=== PATIENT | female | born 1965 | race Caucasian/White ===

== ENCOUNTER 2016-11-04 17:15 | Emergency (ER) | payer OTHER ==
[2016-11-04] MEDS ORDERED: SULFAMETHOXAZOLE/TRIMETHOPRIM 800MG/160MG D.S. TABLET PO ONE (17:22)
--- NOTE | 2016-11-04 17:24 | PDOC ---
Rapid Medical Evaluation Time Seen by Provider: 11/04/16 17:20 Medical Evaluation: Allergies Allergy/AdvReac Type Severity Reaction Status Date / Time No Known Allergies Allergy Verified 11/04/16 17:20 11/04/16 17:23 I have performed a brief in-person evaluation of this patient. The patient presents with a chief complaint of: foreign body R index finger, cellulitis now with abscess s/p rupture pus/blood last night. Pain, no motor/ sensory deficit Pertinent physical exam findings: abscess over dorsal aspect R index finger proximal phalanx mild surrounding erythema joints intact nvi I have ordered the following: xray bactrim to FT for I+D The patient will proceed to the ED for further evaluation.
[2016-11-04 17:25] VITALS: BP 157/104; PULSE 74; TEMP 97.6; BMI 30.6
[2016-11-04] MEDS ORDERED: SULFAMETHOXAZOLE/TRIMETHOPRIM 800MG/160MG D.S. TABLET ONE (17:49)
--- NOTE | 2016-11-04 18:09 | PDOC ---
History of Present Illness - General Chief Complaint: Abscess Boil Stated Complaint: WOUND INFECTION Time Seen by Provider: 11/04/16 17:20 History Source: Patient - History of Present Illness Timing/Duration: reports: other Location: reports: hands Past History - Past Medical History Allergies/Adverse Reactions: Allergies Allergy/AdvReac Type Severity Reaction Status Date / Time No Known Allergies Allergy Verified 11/04/16 17:20 Home Medications: Ambulatory Orders Enalapril Maleate [Vasotec -] 5 mg PO DAILY #14 tablet 01/10/16 Nitrofurantoin Monohyd/M-Cryst [Macrobid -] 100 mg PO BID #14 capsule 01/10/16 Clindamycin [Cleocin -] 300 mg PO Q6HPO #28 capsule 11/04/16 Fluconazole 150 mg PO ONCE #1 tablet 11/04/16 Anemia: No Asthma: No Cancer: No Cardiac Disorders: No CVA: No COPD: No CHF: No DVT: No Dementia: No Diabetes: No Dialysis: No GI Disorders: No Other medical history: DENIES. - Psycho/Social/Smoking Cessation Hx Suicidal Ideation: No Smoking History: Never smoked Hx Alcohol Use: No Drug/Substance Use Hx: No Substance Use Type: None Review of Systems - Review of Systems Constitutional: No: Chills, Fever Integumentary: Yes: Erythema *Physical Exam - Vital Signs Last Vital Signs Temp Pulse Resp BP Pulse Ox 97.6 F 74 19 157/104 100 11/04/16 17:21 11/04/16 17:21 11/04/16 17:21 11/04/16 17:21 11/04/16 17:21 - Physical Exam General Appearance: Yes: Appropriately Dressed. No: Apparent Distress HEENT: positive: Normal Voice Neck: positive: Supple Respiratory/Chest: negative: Respiratory Distress Extremity: positive: Other (~1cm area of induration w/ surrounding erythema over dorsum of proximal phalanx of R 2nd digit) Integumentary: positive: Dry, Warm Neurologic: positive: Fully Oriented, Alert, Normal Mood/Affect Procedures - Incision and Drainage I&D Site: Right: Other (R index finger abscess/cellulitis) Anesthesia: 1% Lidocaine Volume(ml): 6 Blade Size: 11 Attempts: 1 (w/ scant pus, no need for packing giving superficial small wound) Complications: none Dressing: Yes (bacitracin w/ xeroform, 2x2 and soft form) ED Treatment Course - Medications Given in the ED: ED Medications Discontinued Medications Generic Name Dose Route Start Last Admin Trade Name Darius PRN Reason Stop Dose Admin Trimethoprim/Sulfamethoxazole 1 each 11/04/16 17:22 11/04/16 17:52 Bactrim Ds - PO 11/04/16 17:23 1 each ONCE ONE Administration Medical Decision Making - Medical Decision Making 11/04/16 18:03 50-year-old female, denies any past medical history, here with left index pain, swelling, redness and discharge. Patient states around 5 days ago accidentally bumped finger against the wall and states her and her boyfriend removed a splinter with alcohol and tweezers. States wound has since worsened and was able to express pus last night. No fever or chills. See exam Abscess/cellulitis of finger No e/o of tenosynovitis at this time No fb on XR Tetanus UTD -I&D -abx -wound check in 48 hrs 11/04/16 18:35 Pt s/p I&D w/ scant pus. Local wound care and dressing at bedside. Will give 1 dose IV abx in ED prior to discharging on clinda as will cover group A strep and ca-mrsa. (pt pen allergic). Pt to return for wound check in 2 days 11/04/16 18:37 11/04/16 18:39 11/04/16 19:12 *DC/Admit/Observation/Transfer Diagnosis at time of Disposition: Cellulitis and abscess of finger, unspecified - Discharge Dispostion Condition at time of disposition: Improved - Prescriptions Prescriptions: Clindamycin [Cleocin -] 300 mg PO Q6HPO #28 capsule Fluconazole 150 mg PO ONCE #1 tablet - Patient Instructions Printed Discharge Instructions: DI for Incision and Drainage of a Skin Abscess Additional Instructions: Take antibiotics as prescribed and if symptoms worsen, present to ED immediately. Otherwise, follow-up in ED in 48 hours for wound check
[2016-11-04] MEDS ORDERED: CLINDAMYCIN 600MG PREMIX IVPB 50 ML IVPB ONE (18:34)
[2016-11-04] MEDS ORDERED: CLINDAMYCIN PHOSPHATE 600 MG/4 ML VIAL ONE (18:42)
== END 2016-11-04 19:05 | disposition home or self-care (01) ==
LOC: JERFT 17:15
PROC: 0H9FXZZ Drainage of Right Hand Skin, External Approach (ICD-10-PCS; principal; 2016-11-04)
DX: L02.511 Cutaneous abscess of right hand (principal)
CPT/HCPCS: 73140-TC-RT; 99281-25

== ENCOUNTER 2016-11-06 17:22 | Emergency (ER) | payer OTHER ==
--- NOTE | 2016-11-06 17:34 | PDOC ---
Rapid Medical Evaluation Time Seen by Provider: 11/06/16 17:31 Medical Evaluation: Allergies Allergy/AdvReac Type Severity Reaction Status Date / Time No Known Allergies Allergy Verified 11/04/16 17:20 11/06/16 17:31 I have performed a brief in-person evaluation of the patient. The patient presents with a chief complaint of: follow up of abscess right 2nd digit Pertinent physical exam findings: wrapped right 2nd digit I have ordered the following: none The patient will proceed to [facility] for further evaluation
[2016-11-06 17:38] VITALS: TEMP 97.4; BMI 33.6
--- NOTE | 2016-11-06 19:26 | PDOC ---
History of Present Illness - General Chief Complaint: Revisit,Wound Recheck Stated Complaint: REVISIT/WOUND CHECK Time Seen by Provider: 11/06/16 17:31 History Source: Patient Exam Limitations: No Limitations - History of Present Illness Timing/Duration: unsure Past History - Travel Traveled outside of the country in the last 30 days: No Close contact w/someone who was outside of country & ill: No - Past Medical History Allergies/Adverse Reactions: Allergies Allergy/AdvReac Type Severity Reaction Status Date / Time amoxicillin trihydrate Allergy Swelling Verified 11/06/16 17:33 [From Augmentin] azithromycin Allergy Swelling Verified 11/06/16 17:33 potassium clavulanate Allergy Swelling Verified 11/06/16 17:33 [From Augmentin] Home Medications: Ambulatory Orders Clindamycin [Cleocin -] 300 mg PO Q6HPO #28 capsule 11/04/16 Anemia: No Asthma: No Cancer: No Cardiac Disorders: No CVA: No COPD: No CHF: No DVT: No Dementia: No Diabetes: No Dialysis: No GI Disorders: No - Psycho/Social/Smoking Cessation Hx Anxiety: No Suicidal Ideation: No Smoking History: Never smoked Have you smoked in the past 12 months: No Information on smoking cessation initiated: No Hx Alcohol Use: No Drug/Substance Use Hx: No Substance Use Type: None Review of Systems - Review of Systems Able to Perform ROS?: Yes Is the patient limited Slovak proficient: No *Physical Exam - Vital Signs Last Vital Signs Temp Pulse Resp BP Pulse Ox 97.4 F L 64 18 196/110 100 11/06/16 17:33 11/06/16 19:01 11/06/16 19:01 11/06/16 19:01 11/06/16 19:01 *DC/Admit/Observation/Transfer Diagnosis at time of Disposition: Visit for wound check Hypertension Qualifiers: Hypertension type: unspecified secondary hypertension Qualified Code(s): I15.9 - Secondary hypertension, unspecified; I15 - Secondary hypertension - Discharge Dispostion Disposition: HOME Condition at time of disposition: Improved - Patient Instructions Printed Discharge Instructions: High Blood Pressure Additional Instructions: MUST follow up with your physician or the physician listed on your discharge Your blood pressure is better on discharge but you MUST follow up. You do NOT want a catscan of your head but state that you will return if the symptoms recur. You are made well aware that high blood pressure and headaches can cause cranial (brain ) bleed and organ damages. Return to the ER for headaches, dizziness, lightheadedness, pain. Progress Note - Progress Note Progress Note: 34-year-old female presents to the emergency department for wound check to her right second digit. Patient states approximately 10 days ago, she hit her hand against a wooden door frame and caused a splinter to puncture her finger. Patient says she thought she removed entire splinter until 5 days ago. She started exhibiting pain which prompted her to look at her wound. She managed to remove an approximate .05 cm remaining splinter from her finger. Patient denies any fever, extremity numbness or tingling sensation. Patient was seen in the emergency department 2 days ago for an I&D and was informed to return to the emergency department for wound check. Upon discharge, patient had her blood pressure taken and was 191/110. Patient says she has a 1/10 dull nonradiating intermittent, right temporal headache which has subsided upon our attempted discharge earlier. Patient says it is not the worst headache of her life. She denies any dizziness, lightheadedness, visual disturbance, blurriness, neck pains, back pains, chest pain, shortness of breath. Patient says she feels fine.
[2016-11-06] MEDS ORDERED: hydrALAZINE HCL 20 MG/ML VIAL ONE (19:31)
--- NOTE | 2016-11-06 19:43 | PDOC ---
*Physical Exam - Vital Signs Last Vital Signs Temp Pulse Resp BP Pulse Ox 97.4 F L 64 18 196/110 100 11/06/16 17:33 11/06/16 19:01 11/06/16 19:01 11/06/16 19:01 11/06/16 19:01 Medical Decision Making - Medical Decision Making 11/06/16 19:43 agree with care from LEEANN Pickard *DC/Admit/Observation/Transfer Diagnosis at time of Disposition: Visit for wound check, Hypertension - Discharge Dispostion Disposition: HOME Condition at time of disposition: Improved - Patient Instructions Printed Discharge Instructions: High Blood Pressure Additional Instructions: MUST follow up with your physician or the physician listed on your discharge Your blood pressure is better on discharge but you MUST follow up. You do NOT want a catscan of your head but state that you will return if the symptoms recur. You are made well aware that high blood pressure and headaches can cause cranial (brain ) bleed and organ damages. Return to the ER for headaches, dizziness, lightheadedness, pain.
[2016-11-06] MEDS ORDERED: ACETAMINOPHEN 325 MG TABLET (FP) PO ONE (20:44)
[2016-11-06] MEDS ORDERED: hydrALAZINE HCL 20 MG/ML VIAL IVPUSH ONE (20:50)
[2016-11-06] MEDS ORDERED: ACETAMINOPHEN 325 MG TABLET (FP) ONE ×2 (20:52→20:54)
[2016-11-06 21:39] VITALS: BP 152/85; PULSE 83
== END 2016-11-06 22:00 | disposition home or self-care (01) ==
LOC: JERFT 17:22 → JER 17:22
PROC: 3E033GC Introduction of Other Therapeutic Substance into Peripheral Vein, Percutaneous Approach (ICD-10-PCS; principal; 2016-11-06)
DX: Z48.01 Encounter for change or removal of surgical wound dressing (principal); I10 Essential (primary) hypertension
CPT/HCPCS: 99283-25

== ENCOUNTER 2017-03-19 12:46 | Emergency (ER) | payer OTHER ==
[2017-03-19 12:50] VITALS: TEMP 98.4; BMI 30.9
--- NOTE | 2017-03-19 13:10 | PDOC ---
History of Present Illness - General History Source: Patient Exam Limitations: No Limitations <Eula Levine - Last Filed: 03/19/17 16:11> <Doe Fernandes - Last Filed: 03/20/17 19:26> - General Chief Complaint: Chest Pain Stated Complaint: CHEST PAIN Time Seen by Provider: 03/19/17 13:06 - History of Present Illness Initial Comments: 03/19/17 16:11 The patient is a 51 year old female, with a significant past medical history of hypertension, who presents to the emergency department for evaluation of elevated blood pressure. Patient reports she was measuring her blood pressure this morning when she began to feel a sharp shooting pain down her right arm but resolved when the cuff deflated. She denies any associated paresthesias or weakness. Patient reports experiencing some chest pain, which she describes as cool/burning iin nature at approx 10am. She reports associated headache and nausea, but denies any dizziness, vomiting, diarrhea, or constipation. She denies any strenuous activity. Patient reports she is occasionally short of breath when walking up a large hill, but dneis any chest pain, diaphoresis or palpitations. Patient states she recently visited her VISUAL SPECIALIST for an annual SNAILER exam, but states Dr. Nguyễn was concerned with her elevated pressure and suggested she present to the ED. Patient reports she has been monitoring her blood pressure and is not on any medications as when she goes to her PMDs office it is normal. Patient reports she had a stress test done last year, which was normal. Allergies: Amoxicillin trihydrate, Azithromycin, Potassium clavulanate Past Surgical History: None reported Social History: Non smoker. No ETOH or drug use. PCP: Dr. Borrero VISUAL SPECIALIST: Dr. Nguyễn (Eula Levine) Past History <Eula Levine - Last Filed: 03/19/17 16:11> - Past Medical History Anemia: No Asthma: No Cancer: No Cardiac Disorders: No CVA: No COPD: No CHF: No DVT: No Dementia: No Diabetes: No Dialysis: No GI Disorders: No Other medical history: DENIES. - Psycho/Social/Smoking Cessation Hx Anxiety: No Suicidal Ideation: No Smoking History: Never smoked Have you smoked in the past 12 months: No Hx Alcohol Use: Yes Drug/Substance Use Hx: No Substance Use Type: None <Doe Fernandes - Last Filed: 03/20/17 19:26> - Past Medical History Allergies/Adverse Reactions: Allergies Allergy/AdvReac Type Severity Reaction Status Date / Time amoxicillin trihydrate Allergy Swelling Verified 03/19/17 13:52 [From Augmentin] azithromycin Allergy Swelling Verified 03/19/17 13:52 potassium clavulanate Allergy Swelling Verified 03/19/17 13:52 [From Augmentin] Home Medications: Ambulatory Orders Clonidine HCl [Catapres] 0.1 mg PO TID #30 tablet 03/19/17 Cardiac Specific PMH - Complaint Specific PMHX GERD: No <Doe Fernandes - Last Filed: 03/20/17 19:26> Review of Systems - Review of Systems Able to Perform ROS?: Yes <Eula Levine - Last Filed: 03/19/17 16:11> <Doe Fernandes - Last Filed: 03/20/17 19:26> - Review of Systems Comments:: 03/19/17 16:11 Constitutional: Pt denies Fever, Chills, weakness HEENT: Denies sore throat, vision changes Respiratory: Denies cough, hemoptysis Cardiac: Pt reports +chest pain. Denies palpitations, light headedness, leg swelling Abd/GI: Reports +nausea. Denies abd pain, vomiting, blood per rectum, melena, diarrhea : Denies dysuria, frequency, discharge Musculoskelatal: Denies back pain, joint swelling Skin: Denies bruising, erythema, rash Neurological: Pt reports +mild headache, Denies focal weakness, tingling, ataxia , weakness Hematologic: Denies anemia, easy bruising, easy bleeding (Haley Levineomilsy) *Physical Exam <Eula Levine - Last Filed: 03/19/17 16:11> <Doe Fernandes - Last Filed: 03/20/17 19:26> - Vital Signs Last Vital Signs Temp Pulse Resp BP Pulse Ox 98.4 F 70 17 189/109 100 03/19/17 12:47 03/19/17 19:31 03/19/17 19:31 03/19/17 19:31 03/19/17 19:31 - Physical Exam Comments: 03/19/17 16:11 GENERAL: The patient is awake, alert, and fully oriented, Nontoxic - in no acute distress. HEAD: Normocephalic, atraumatic. EYES: extraocular movements intact, sclera anicteric, conjunctiva clear. ENT: Normal voice, Moist mucous membranes. NECK: Normal range of motion, supple without lymphadenopathy, JVD, or masses. LUNGS: Breath sounds equal, clear to auscultation bilaterally. No wheezes, no crackles, no rales. HEART: Regular rate and rhythm, normal S1 and S2 without murmur, rub or gallop. ABDOMEN: Soft, nontender, normoactive bowel sounds. No guarding, no rebound. No masses. EXTREMITIES: Normal range of motion, no edema. No clubbing or cyanosis. No cords , erythema, or tenderness. NEUROLOGICAL: No facial asymmetry, Normal speech, normal gait. PSYCH: Normal mood, normal affect. SKIN: Warm, Dry, normal turgor, no rashes or lesions noted. (Eula Levine) ED Treatment Course - LABORATORY CBC & Chemistry Diagram: 03/19/17 13:55 03/19/17 13:55 <Eula Levine - Last Filed: 03/19/17 16:11> - LABORATORY CBC & Chemistry Diagram: 03/19/17 13:55 03/19/17 13:55 <Doe Fernandes - Last Filed: 03/20/17 19:26> - ADDITIONAL ORDERS Additional order review: 03/19/17 13:55 RBC 5.13 MCV 85.8 MCHC 32.6 RDW 14.2 MPV 8.9 Neutrophils % 65.0 Lymphocytes % 27.7 Monocytes % 5.1 Eosinophils % 1.2 Basophils % 1.0 - RADIOLOGY Radiology Studies Ordered: Category Date Time Status CHEST X-RAY PORTABLE* [RAD] Stat Radiology 03/19/17 13:25 Completed Radiograph Interpretation: 03/19/17 15:05 EXAM: CXR INTERPRETED BY: Dr. Fan REVIEWED BY: Dr. Altamirano IMPRESSION: No evidence of active pulmonary disease. (Eula Levine) - Medications Given in the ED: ED Medications Discontinued Medications Generic Name Dose Route Start Last Admin Trade Name Freq PRN Reason Stop Dose Admin Aspirin 162 mg 03/19/17 13:25 03/19/17 13:46 Asa - PO 03/19/17 13:26 162 mg ONCE ONE Administration Clonidine 0.2 mg 03/19/17 19:21 03/19/17 19:31 Catapres - PO 03/19/17 19:22 0.2 mg ONCE ONE Administration Medical Decision Making <Joselyn Levinekrista - Last Filed: 03/19/17 16:11> <Doe Fernandes - Last Filed: 03/20/17 19:26> - Medical Decision Making 03/19/17 13:39 51y F hx of borderline htn presents with chest pain, headache and concern about her bP. The pts tates that the past few times she was in the ER and in the software tester, she was noted to have elevated BP, at her PMDs office, her BP has been normal so she was not started on anything. Pt states this morning when she checked her BP, she had a sharp pain as the cuff was inflating in her R arm, it resolved after she turn the cuff off. The pt endorsed a feeling of chest burning /cool setion in her chest shortly after that resolved after a minute ther was no associated sob, dipahoresis, no sypmtoms on exertion, no associated diaphoresis, n/v. her exam is normal. her vitals noted for mild hypertension consider acs, however sypmtoms are highly atypical, will obtain trop x 2, ekg, cxr cbc, cmp will give asa will erassess and monitor A portion of this note was documented by scribe services under my direction. I have reviewed the details of the note, within reason, and agree with the documentation with the following case summary and management plan written by me 03/19/17 16:29 trop negative x 1 labs unremarkble cxr negative will obtain 2nd trop at 5pm if neg will dc to fu with dr. coppola for further evalution and monitoring of bp and futher risk stratificatoin of her cp case signed ou tto dr. altamirano to fu with 2nd trop, reassess and disposition the pt (Doe Fernandes) *DC/Admit/Observation/Transfer <Haley Levinebarb - Last Filed: 03/19/17 16:11> <Doe Fernandes - Last Filed: 03/20/17 19:26> Diagnosis at time of Disposition: Atypical chest pain, Labile essential hypertension - Discharge Dispostion Disposition: HOME Condition at time of disposition: Improved - Prescriptions Prescriptions: Clonidine HCl [Catapres] 0.1 mg PO TID #30 tablet - Referrals Referrals: Yann Coppola MD, MD [Primary Care Provider] - - Patient Instructions Printed Discharge Instructions: High Blood Pressure, DI for Atypical Chest Pain Additional Instructions: Yudith- I am sorry this took so long today. Your second troponin was negative. Make certain you follow up with your doctor as soon as you can. Take your blood pressure the same time everyday and share the results with your doctor when you follow up. Return to us if worse or any problems. Best- Dr. Sacha Altamirano - Attestations Scribe Attestion: 03/19/17 16:11 Documentation prepared by Eula Levine, acting as medical records receptionist for Doe Fernandes MD. (Eula Levine)
[2017-03-19] MEDS ORDERED: ASPIRIN 81 MG CHEWABLE TABLETS PO ONE (13:25)
[2017-03-19] MEDS ORDERED: ASPIRIN 81 MG CHEWABLE TABLETS ONE (13:44)
[2017-03-19 14:14] LABS: EOSINOPHIL 1.2 % (0-4.5); MCH 27.9 pg (25.7-33.7); MCHC 32.6 g/dl (32.0-36.0); MEAN CELL VOLUME 85.8 fl (80-96); MEAN PLT VOLUME 8.9 fl (7.5-11.1); PLATELET COUNT 254 K/MM3 (134-434); RDW 14.2 % (11.6-15.6); WHITE BLOOD COUNT 9.1 K/mm3 (4.0-10.0)
[2017-03-19 14:41] LABS: ALBUMIN 3.8 g/dl (3.4-5.0); ANION GAP 7 (8-16); BILIRUBIN,TOTAL 0.3 mg/dL (0.2-1.0); CALCIUM 8.8 mg/dL (8.5-10.1); CO2 28 mmol/L (21-32); CREATININE 0.8 mg/dL (0.55-1.02); GLUCOSE,RANDOM 81 mg/dL (74-106); SGOT/AST 14 U/L (15-37); SGPT/ALT 21 U/L (12-78); TOT PROT 7.4 g/dl (6.4-8.2)
[2017-03-19 14:43] LABS: ALK PHOS 78 U/L (45-117); TROPONIN I < 0.02 ng/ml (0.00-0.05)
--- NOTE | 2017-03-19 17:51 | PDOC ---
*Physical Exam - Vital Signs Last Vital Signs Temp Pulse Resp BP Pulse Ox 98.4 F 64 18 199/99 100 03/19/17 12:47 03/19/17 15:15 03/19/17 15:15 03/19/17 15:15 03/19/17 13:55 ED Treatment Course - LABORATORY CBC & Chemistry Diagram: 03/19/17 13:55 03/19/17 13:55 - ADDITIONAL ORDERS Additional order review: Laboratory Results 03/19/17 13:55 Sodium 140 Potassium 4.0 Chloride 105 Carbon Dioxide 28 Anion Gap 7 L BUN 8 Creatinine 0.8 Creat Clearance w eGFR > 60 Random Glucose 81 Calcium 8.8 Total Bilirubin 0.3 AST 14 L ALT 21 Alkaline Phosphatase 78 Creatine Kinase 38 Troponin I < 0.02 Total Protein 7.4 Albumin 3.8 03/19/17 13:55 RBC 5.13 MCV 85.8 MCHC 32.6 RDW 14.2 MPV 8.9 Neutrophils % 65.0 Lymphocytes % 27.7 Monocytes % 5.1 Eosinophils % 1.2 Basophils % 1.0 - Medications Given in the ED: ED Medications Discontinued Medications Generic Name Dose Route Start Last Admin Trade Name Darius PRN Reason Stop Dose Admin Aspirin 162 mg 03/19/17 13:25 03/19/17 13:46 Asa - PO 03/19/17 13:26 162 mg ONCE ONE Administration *DC/Admit/Observation/Transfer Diagnosis at time of Disposition: Atypical chest pain, Labile essential hypertension - Discharge Dispostion Disposition: HOME Condition at time of disposition: Improved - Referrals Referrals: Yann Coppola MD, MD [Primary Care Provider] - - Patient Instructions Printed Discharge Instructions: DI for Atypical Chest Pain, High Blood Pressure Additional Instructions: Yudith- I am sorry this took so long today. Your second troponin was negative. Make certain you follow up with your doctor as soon as you can. Take your blood pressure the same time everyday and share the results with your doctor when you follow up. Return to us if worse or any problems. Atilio- Dr. Sacha Altamirano - Post Discharge Activity
[2017-03-19 18:12] LABS: TROPONIN I < 0.02 ng/ml (0.00-0.05)
[2017-03-19] MEDS ORDERED: cloNIDine HCL 0.1 MG TABLET PO ONE (19:21)
[2017-03-19] MEDS ORDERED: cloNIDine HCL 0.1 MG TABLET ONE (19:25)
[2017-03-19 19:32] VITALS: BP 189/109; PULSE 70
--- NOTE | 2017-03-21 08:33 | EKG ---
Test Reason : Blood Pressure : / mmHG Vent. Rate : 070 BPM Atrial Rate : 070 BPM P-R Int : 142 ms QRS Dur : 088 ms QT Int : 418 ms P-R-T Axes : 056 014 011 degrees QTc Int : 451 ms NORMAL SINUS RHYTHM NORMAL ECG NO PREVIOUS ECGS AVAILABLE Confirmed by JAREK VALLE, FATOU ([id number]) on 03/21/2017 8:33:19 AM Referred By: Confirmed By:FATOU TILLEY MD
== END 2017-03-19 20:44 | disposition home or self-care (01) ==
LOC: JER 12:46 → SUPCPDRO 12:46 → JER 20:44
DX: R07.89 Other chest pain (principal); I10 Essential (primary) hypertension
CPT/HCPCS: 36415; 71010-TC; 80053; 82550; 84484; 85025; 93005; 93010; 99285-25

== ENCOUNTER 2017-08-19 12:47 | Emergency (ER) | payer OTHER ==
[2017-08-19 12:53] VITALS: BP 157/98; PULSE 82; TEMP 97.7; BMI 31.5
[2017-08-19 13:19] LABS: URINE APPEARANCE SLCLOUDY; URINE BILIRUBIN NEGATIVE (NEGATIVE); URINE BLOOD NEGATIVE (NEGATIVE); URINE COLOR YELLOW; URINE GLUCOSE (UA) NEGATIVE (NEGATIVE); URINE KETONE NEGATIVE (NEGATIVE); URINE LEUK ESTERASE TRACE (NEGATIVE); URINE NITRITE NEGATIVE (NEGATIVE); URINE PROTEIN NEGATIVE (NEGATIVE); URINE UROBILINOGEN NEGATIVE mg/dL (0.2-1.0)
--- NOTE | 2017-08-19 13:22 | PDOC ---
History of Present Illness - General Chief Complaint: Urinary Problem Stated Complaint: UTI Time Seen by Provider: 08/19/17 13:05 History Source: Patient - History of Present Illness Timing/Duration: reports: constant Abdominal Pain Onset Location: reports: suprapubic Past History - Past Medical History Allergies/Adverse Reactions: Allergies Allergy/AdvReac Type Severity Reaction Status Date / Time amoxicillin trihydrate Allergy Swelling Verified 08/19/17 12:53 [From Augmentin] azithromycin Allergy Swelling Verified 08/19/17 12:53 potassium clavulanate Allergy Swelling Verified 08/19/17 12:53 [From Augmentin] Home Medications: Ambulatory Orders Clonidine HCl [Catapres] 0.1 mg PO TID #30 tablet 03/19/17 Anemia: No Asthma: No Cancer: No Cardiac Disorders: No CVA: No COPD: No CHF: No DVT: No Dementia: No Diabetes: No Dialysis: No GI Disorders: No - Suicide/Smoking/Psychosocial Hx Smoking History: Never smoked Have you smoked in the past 12 months: No Hx Alcohol Use: Yes (social) Drug/Substance Use Hx: No Substance Use Type: None Abd/GI Specific PMHX - Complaint Specific PMHX Colitis: No Diverticulitis: No Gall Bladder Disease: No GERD: No Hepatitis: No Irritable Bowel Synd (IBS): No Pancreatitis: No GI Ulcer Disease: No Review of Systems - Review of Systems Constitutional: No: Chills, Fever, Unexplained wgt Loss ABD/GI: No: Constipated, Diarrhea, Nausea, Vomiting : No: Dysuria, Discharge, Flank Pain, Hematuria *Physical Exam - Vital Signs Last Vital Signs Temp Pulse Resp BP Pulse Ox 97.7 F 82 20 157/98 100 08/19/17 12:49 08/19/17 12:49 08/19/17 12:49 08/19/17 12:49 08/19/17 12:49 - Physical Exam General Appearance: Yes: Appropriately Dressed. No: Apparent Distress HEENT: positive: Normal Voice Neck: positive: Supple Respiratory/Chest: negative: Respiratory Distress Gastrointestinal/Abdominal: positive: Normal Bowel Sounds, Soft. negative: Tender, Distended, Guarding, Rebound Musculoskeletal: negative: CVA Tenderness Integumentary: positive: Dry, Warm Neurologic: positive: Fully Oriented, Alert, Normal Mood/Affect Medical Decision Making - Medical Decision Making 08/19/17 13:19 51-year-old female, no significant history, continues to get monthly menses, s/ p tubal ligation remotely, sexually active, status post treatment for UTI with macrobid a month ago and subsequently developed a yeast infection and was treated with diflucan and "a cream" for 7 days with relief of symptoms per pt, now complaining of suprapubic "discomfort" x 3 days that is constant in nature, improved this am. Denies having any dysuria, hematuria, frequency, vaginal discharge or itching at this time. No change in bowel movements, nausea, vomiting, fever or chills. States she called her [employer] this morning but was unable to be seen See exam Pelvic discomfort, since improved S/p recent treatment for uti and yeast infection No dysuria or vag discharge at this time Well schuyler and stable w/ benign abd and nl pelvic exam Ua neg for nitrite w/ <1 WBC, cx sent -Will dc to f/u with her [employer] *DC/Admit/Observation/Transfer Diagnosis at time of Disposition: Pelvic pain - Discharge Dispostion Disposition: HOME Condition at time of disposition: Good - Referrals Referrals: Yann Coppola MD, MD [Primary Care Provider] - - Patient Instructions Printed Discharge Instructions: DI for Pelvic Pain Additional Instructions: The cause of your symptoms today are unclear at this time as your exam was normal and your urine did not show any signs of infection today Please follow-up with your [employer] next week - Post Discharge Activity
[2017-08-19 13:31] LABS: URINE BACTERIA RARE /hpf (NONE SEEN); URINE MUCUS RARE; URINE RBC <1 /hpf (0-3); URINE WBC <1 /hpf (3-5)
[2017-08-19 16:59] LABS: URINE LEUK ESTERASE Negative (NEGATIVE)
== END 2017-08-19 13:37 | disposition home or self-care (01) ==
LOC: JERFT 12:47
DX: R10.2 Pelvic and perineal pain (principal); Z87.440 Personal history of urinary (tract) infections
CPT/HCPCS: 36415; 81003; 81015; 87086; 87491; 87591; 99281-25

== ENCOUNTER 2017-10-21 23:06 | Emergency (ER) | payer OTHER | END 2017-10-22 01:39 | disposition left against medical advice (07) | LOC: JER 23:06 | DX: Z53.21 Procedure and treatment not carried out due to patient leaving prior to being seen by health care provider (principal) | CPT/HCPCS: 99281-25 ==

== ENCOUNTER 2018-11-07 01:18 | Emergency (ER) | payer OTHER ==
[2018-11-07 01:55] VITALS: BP 135/85; PULSE 74; TEMP 98.1; BMI 30.9
--- NOTE | 2018-11-07 01:55 | PDOC ---
History of Present Illness <Chelsi Mcneill - Last Filed: 11/07/18 04:14> <Marcelo Arceoson - Last Filed: 11/07/18 04:16> - General Stated Complaint: CHEST PRESSURE Time Seen by Provider: 11/07/18 01:38 - History of Present Illness Initial Comments: 11/07/18 01:53 52 yo F with h/o HTN who p/w chest pain. Patient reports 1 week of intermittent left and right sided sharp chest pain, with no identifiable triggers or alleviators. Now with 24 hours of unremitting non pleuritic, non exertional retrosternal chest pressure, with fluctuating intensity, unremitting, with no triggers. + Rojo, and intermittent BL UE tingling for 1-2 weeks. Denies h/o similiar presentation. 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 No home O2 use, or duoneb use Patient denies CHANEY, vision change, palpitations, cough, wheezing, orthopena, Palpitations, PND, leg swelling/pain, N/V, F,C, urinary complaints, hematuria, BPR, abdominal pain, diarrhea, constipation, lightheadedness, weakness, sensory changes. PMHx: as noted above. Denies h/o ACS/GA, stent placement, CABG, PE/DVT ROS: as noted SHx: Denies Etoh, IVDA, tobacco use Allergies: NKDA (Nayan Arceo) Past History <Chelsi Mcneill - Last Filed: 11/07/18 04:14> - Past Medical History Anemia: No Asthma: No Cancer: No Cardiac Disorders: No CVA: No COPD: No CHF: No DVT: No Dementia: No Diabetes: No Dialysis: No GI Disorders: No - Suicide/Smoking/Psychosocial Hx Smoking History: Never smoked Have you smoked in the past 12 months: No Hx Alcohol Use: Yes (social) Drug/Substance Use Hx: No Substance Use Type: None <Nayan Arceo - Last Filed: 11/07/18 04:16> - Past Medical History Allergies/Adverse Reactions: Allergies Allergy/AdvReac Type Severity Reaction Status Date / Time amoxicillin trihydrate Allergy Swelling Verified 11/07/18 01:55 [From Augmentin] azithromycin Allergy Swelling Verified 11/07/18 01:55 potassium clavulanate Allergy Swelling Verified 11/07/18 01:55 [From Augmentin] Home Medications: Ambulatory Orders Amlodipine Besylate 5 mg PO DAILY 11/07/18 Triamterene/Hydrochlorothiazid [Triamterene-Hctz 37.5-25 mg Cp] 1 each PO DAILY 11/07/18 Cardiac Specific PMH - Complaint Specific PMHX GERD: No <Nayan Arceo - Last Filed: 11/07/18 04:16> Review of Systems <McneillChelsi - Last Filed: 11/07/18 04:14> <Nayan Arceo - Last Filed: 11/07/18 04:16> - Review of Systems Comments:: 11/07/18 01:53 GENERAL/CONSTITUTIONAL: No fever or chills. No weakness. HEAD, EYES, EARS, NOSE AND THROAT: No change in vision. No ear pain or discharge. No sore throat. CARDIOVASCULAR: + chest pain and shortness of breath RESPIRATORY: No cough, wheezing, or hemoptysis. GASTROINTESTINAL: No nausea, vomiting, diarrhea or constipation. GENITOURINARY: No dysuria, frequency, or change in urination. MUSCULOSKELETAL: No joint or muscle swelling or pain. No neck or back pain. SKIN: No rash NEUROLOGIC: No headache, vertigo, loss of consciousness, or change in strength/ sensation. ENDOCRINE: No increased thirst. No abnormal weight change HEMATOLOGIC/LYMPHATIC: No anemia, easy bleeding, or history of blood clots. ALLERGIC/IMMUNOLOGIC: No hives or skin allergy. (Nayan Arceo) *Physical Exam <Chelsi Mcneill - Last Filed: 11/07/18 04:14> <Nayan Arceo - Last Filed: 11/07/18 04:16> - Vital Signs Last Vital Signs Temp Pulse Resp BP Pulse Ox 98.1 F 74 18 135/85 100 11/07/18 01:18 11/07/18 01:18 11/07/18 01:18 11/07/18 01:18 11/07/18 01:18 - Physical Exam Comments: 11/07/18 01:53 GENERAL: Awake, alert, and fully oriented, in no acute distress HEAD: No signs of trauma, normocephalic, atraumatic EYES: PERRLA, EOMI, sclera anicteric, conjunctiva clear ENT: Auricles normal inspection, hearing grossly normal, nares patent, oropharynx clear without exudates. Moist mucosa NECK: Normal ROM, supple, no lymphadenopathy, JVD, or masses LUNGS: No distress, speaks full sentences, clear to auscultation bilaterally HEART: Regular rate and rhythm, normal S1 and S2, no murmurs, rubs or gallops, peripheral pulses normal and equal bilaterally. ABDOMEN: Soft, nontender, normoactive bowel sounds. No guarding, no rebound. No masses EXTREMITIES : Normal inspection, Normal range of motion, no edema. No clubbing or cyanosis. NEUROLOGICAL: Cranial nerves II through XII grossly intact. Normal speech, normal gait, no focal sensorimotor deficits SKIN: Warm, Dry, normal turgor, no rashes or lesions noted (Nayan Arceo) - Procedure Monitoring Vital Signs: Procedure Monitoring Vital Signs Temperature 98.1 F 11/07/18 01:18 Pulse Rate 74 11/07/18 01:18 Respiratory Rate 18 11/07/18 01:18 Blood Pressure 135/85 11/07/18 01:18 O2 Sat by Pulse Oximetry (%) 100 11/07/18 01:18 ED Treatment Course - LABORATORY CBC & Chemistry Diagram: 11/07/18 02:16 11/07/18 02:16 <Chelsi Mcneill - Last Filed: 11/07/18 04:14> - LABORATORY CBC & Chemistry Diagram: 11/07/18 02:16 11/07/18 02:16 <Nayan Arceo - Last Filed: 11/07/18 04:16> - ADDITIONAL ORDERS Additional order review: Laboratory Results 11/07/18 11/07/18 11/07/18 02:16 02:16 02:16 Sodium 140 Potassium 4.3 Chloride 106 Carbon Dioxide 29 Anion Gap 5 L BUN 16 Creatinine 0.8 Creat Clearance w eGFR > 60 Random Glucose 95 Calcium 8.5 Total Bilirubin 0.2 AST < 3 L ALT 27 Alkaline Phosphatase 93 Creatine Kinase 47 Troponin I < 0.02 Total Protein 7.2 Albumin 3.6 Lipase 103 Serum , Qual Negative 11/07/18 02:16 RBC 4.74 MCV 85.3 MCHC 33.6 RDW 14.0 MPV 8.2 Neutrophils % 66.0 Lymphocytes % 25.1 Monocytes % 5.6 Eosinophils % 1.9 Basophils % 1.4 - RADIOLOGY Radiology Studies Ordered: Category Date Time Status CXRPORT [CHEST X-RAY PORTABLE*] [RAD] Stat Radiology 11/07/18 01:52 Taken Medical Decision Making <Lulu Mcneillreen - Last Filed: 11/07/18 04:14> <Nayan Arceo - Last Filed: 11/07/18 04:16> - Medical Decision Making 11/07/18 01:54 52 yo F with h/o HTN who p/w 1 week of intermittent left and right sided sharp chest pain, with no identifiable triggers or alleviators. Now with 24 hours of unremitting non pleuritic, non exertional retrosternal chest pressure. + Rojo for 1-2 weeks. Vitals wnl, AF, A&Ox3. Physical exam unremarkable. ACS/GA r/o. R/ o PNA. Will consider gastritis, plerual or pericardial effusion. Low suspicion asthma, COPD, CHF, pericarditis. Will reassess. ED Course: 11/07/18 02:17 EKG: NSR with absent NSR with absent JULY, STD. Normal interval duration and axis. 11/07/18 02:23 Patient advised to f/u with cardiology 11/07/18 03:24 CBC, CMP: Unremarkable UA: Neg 11/07/18 04:16 [place], ASA Pain improved Pt. stable for d/c with return precautions. Advised to f/u with cardiology (Nayan Arceo) *DC/Admit/Observation/Transfer - Discharge Dispostion Decision to Admit order: No <McneillChelsi gauthier - Last Filed: 11/07/18 04:14> <Nayan Arceo - Last Filed: 11/07/18 04:16> Diagnosis at time of Disposition: Atypical chest pain - Discharge Dispostion Disposition: HOME Condition at time of disposition: Stable - Referrals Referrals: Oli Lewis MD [Primary Care Provider] - Damir Cia MD [Staff Physician] - - Patient Instructions Printed Discharge Instructions: DI for Atypical Chest Pain Additional Instructions: Please return to the emergency department with any new or worsening symptoms or concerns. Please follow up with your primary care physician within 72 hours. - Post Discharge Activity - Attestations Physician Attestion: 11/07/18 01:57 I attest to the information provided in this note. (Nayan Arceo)
[2018-11-07 02:28] LABS: BASO % 1.4 % (0-2.0); EOS % 1.9 % (0-4.5); HEMATOCRIT 40.5 % (32.4-45.2); HEMOGLOBIN 13.6 GM/dL (10.7-15.3); LYMPH % 25.1 % (8-40); MCH 28.7 pg (25.7-33.7); MCHC 33.6 g/dl (32.0-36.0); MEAN CELL VOLUME 85.3 fl (80-96); MEAN PLT VOLUME 8.2 fl (7.5-11.1); MONO % 5.6 % (3.8-10.2); PLATELET COUNT 310 K/MM3 (134-434); RBC 4.74 M/mm3 (3.60-5.2); WHITE BLOOD COUNT 9.8 K/mm3 (4.0-10.0)
--- NOTE | 2018-11-07 02:52 | PDOC ---
Attending Attestation - Resident Resident Name: Nayan Arceo - ED Attending Attestation I have performed the following: I have examined & evaluated the patient, The case was reviewed & discussed with the resident, I agree w/resident's findings & plan - HPI HPI: 11/07/18 02:33 Pt comes with chest pain that has been ongoing x weeks. However, CP got worse over the last day. She feels that she has a pressure on her upper chest. - Physicial Exam PE: 11/07/18 20:58 Agree with resident exam - Medical Decision Making 11/07/18 02:53 Exam is normal; CBC is normal. EKG is normal. 11/07/18 04:14 All labs are normal. Pt will be discharged home. Heart Score/ECG Review - ECG Intrepretation Rhythm: Regular Rhythm - [place]: Normal - P and AL Prominent R with upright T in V1 (true posterior NC): No Delta Wave(s) Present: No WPW: No - QRS Poor R Wave Progression: No Q Wave Present: No - ST and T Early Repolarization: No Non Specific ST-T Wave changes: No Flattened T Waves: No Prolonged Q-T Interval: No - ECG Impressions Normal ECG: No Non-specific ST Elevation: No Ischemic Changes: No Bradycardia: No Torsades azalea Pointes: No WPW: No
[2018-11-07 03:00] LABS: ALBUMIN 3.6 g/dl (3.4-5.0); ALK PHOS 93 U/L (45-117); ANION GAP 5 MMOL/L (8-16); BILIRUBIN,TOTAL 0.2 mg/dL (0.2-1); BLOOD UREA NITROGEN 16 mg/dL (7-18); CALCIUM 8.5 mg/dL (8.5-10.1); CHLORIDE 106 mmol/L (98-107); CO2 29 mmol/L (21-32); CREATININE 0.8 mg/dL (0.55-1.3); GLUCOSE,RANDOM 95 mg/dL (74-106); POTASSIUM 4.3 mmol/L (3.5-5.1); SGOT/AST < 3 U/L (15-37); SGPT/ALT 27 U/L (13-61); SODIUM 140 mmol/L (136-145); TOT PROT 7.2 g/dl (6.4-8.2)
[2018-11-07 03:19] LABS: LIPASE 103 U/L (73-393)
[2018-11-07] MEDS ORDERED: MAG HYDROX/AL HYDROX/SIMETH 30 ML UNIT-DOSE CUP PO ONE (04:16)
[2018-11-07] MEDS ORDERED: MAG HYDROX/AL HYDROX/SIMETH 30 ML UNIT-DOSE CUP ONE (04:25)
[2018-11-07] MEDS ORDERED: ASPIRIN COATED 81 MG TABLET.EC PO SCH (10:00)
--- NOTE | 2018-11-09 13:51 | EKG ---
Test Reason : Blood Pressure : / mmHG Vent. Rate : 071 BPM Atrial Rate : 071 BPM P-R Int : 148 ms QRS Dur : 088 ms QT Int : 414 ms P-R-T Axes : 072 041 027 degrees QTc Int : 449 ms NORMAL SINUS RHYTHM NONSPECIFIC T WAVE ABNORMALITY ABNORMAL ECG WHEN COMPARED WITH ECG OF 19-MAR-2017 13:00, NO SIGNIFICANT CHANGE WAS FOUND Confirmed by MD Singer Daniel ([id number]) on 11/09/2018 1:51:31 PM Referred By: Confirmed By:Laci Singer MD
== END 2018-11-07 04:26 | disposition home or self-care (01) ==
LOC: JER 01:18
DX: R07.9 Chest pain, unspecified (principal); I10 Essential (primary) hypertension
CPT/HCPCS: 36415; 71045-TC-FY; 80053; 82550; 83690; 84484; 84703; 85025; 93005; 93010; 99281-25

== ENCOUNTER 2019-02-24 09:31 | Day surgery (SDC) | payer OTHER ==
[2019-02-24 10:18] VITALS: BMI 34.3
[2019-02-24] MEDS ORDERED: MIDAZOLAM HCL 2 MG/2 ML SINGLE DOSE VIAL ONE (13:03)
[2019-02-24] MEDS ORDERED: PROPOFOL 20 ML ONE (13:03)
[2019-02-24] MEDS ORDERED: PROMETHAZINE HCL 25 MG/1 ML VIAL IVPB PRN (13:12)
[2019-02-24] MEDS ORDERED: ONDANSETRON 4 MG/2 ML VIAL IVPUSH PRN (13:12)
[2019-02-24] MEDS ORDERED: oxyCODONE HCL 5 MG TABLET PO PRN (13:12)
[2019-02-24] MEDS ORDERED: LACTATED RINGERS SOLUTION 1,000 ML IV SCH (13:15)
--- NOTE | 2019-02-24 13:31 | HP ---
History & Physical Update - History History: No Change - Physical Physical: No Change - Assessment Assessment: No Change - Plan Plan: No Change (Agree with H&P from 02/14, for hysteroscopy, D&C)
[2019-02-24] MEDS ORDERED: LIDOCAINE HCL/PF 2% SDV 5ML VIAL ONE (13:38)
[2019-02-24] MEDS ORDERED: DEXAMETHASONE SOD PHOSPHATE 4 MG/1 ML VIAL ONE (13:43)
[2019-02-24] MEDS ORDERED: KETOROLAC TROMETHAMINE 30 MG/1 ML VIAL ONE (13:51)
[2019-02-24] MEDS ORDERED: METOPROLOL TARTRATE 5 MG/5 ML VIAL ONE (13:57)
[2019-02-24] MEDS ORDERED: hydrALAZINE HCL 20 MG/ML VIAL IVPUSH ONE ×2 (14:11)
--- NOTE | 2019-02-24 14:34 | OP ---
Operative Note - Note: Operative Date: 02/24/19 Pre-Operative Diagnosis: AUB/endometrial polyp Operation: Hysteroscopy, D&C Findings: no intrauterine polyps/pathology Post-Operative Diagnosis: Same as Pre-op Surgeon: Megan Nguyễn Anesthesiologist/BEAD MACHINE OPERATOR: Mike Garcia Anesthesia: General Estimated Blood Loss (mls): 5 Operative Report Dictated: Yes
[2019-02-24 16:52] VITALS: BP 142/79; PULSE 77; TEMP 97.5
--- NOTE | 2019-02-25 09:04 | OP ---
DATE OF OPERATION: 02/24/2019 PREOPERATIVE DIAGNOSIS: Abnormal uterine bleeding, endometrial polyp. POSTOPERATIVE DIAGNOSIS: Abnormal uterine bleeding. SURGEON: Megan Nguyễn MD SPRAY DYER: None. PROCEDURE: Hysteroscopy, dilatation and curettage. ANESTHESIA: General by Mike Garcia MD. ESTIMATED BLOOD LOSS: 5 mL. SPECIMENS REMOVED: Endometrial curettings COUNTS: Sponge and instrument counts correct. COMPLICATIONS: None. DISPOSITION: Stable to PACU. BRIEF HISTORY AND PROCEDURE: Patient is a 53-year-old female who had been seen in the office and on hysterosonogram was found to have an endometrial polyp. Patient was counseled on her options and elected to undergo hysteroscopic resection of the polyp. The patient was then admitted to [facility] on February 24, 2019. Consents for the procedure which had been signed in the office were reconfirmed. The patient was taken back to the operating room, placed in the dorsal lithotomy position, given general anesthesia. A hard time-out was performed. A speculum was placed inside the vagina. The anterior lip of the cervix was grasped with a single-tooth tenaculum, and the cervix was dilated to accommodate a hysteroscope which was advanced to the fundus of the uterus. Bilateral tubal ostia were noted. No discrete endometrial polyps were noted at this time. Sharp curettage on all 4 gaston of the uterus until adequate uterine cry was noted, was completed, and suction curettage was completed to remove all the endometrial curettings. One final pass of the hysteroscope revealed no evidence of uterine perforation or trauma. All instruments were removed from the vagina. No bleeding was noted from the tenaculum sites. Minimal bleeding was noted from the cervical os. Sponge and instrument counts were reported to be correct. The patient tolerated the procedure well and was recovering in stable condition in the PACU after the procedure. MEGAN NGUYỄN DO /[id number]
--- NOTE | 2019-02-28 16:41 | PATH ---
Surgical Pathology Report Patient Name: CRAMITA BRYSON [facility]. Rec. #: [id number] /Age/Gender: 1965 (Age: 53) / F Account: [id number] Location: [facility] SURGICAL Taken: 02/24/2019 Received: 02/25/2019 Reported: 02/28/2019 Physicians: Megan Nguyễn M.D. Specimen(s) Received ENDOMETRIAL CURETTINGS Clinical History Abnormal uterine bleeding Final Diagnosis ENDOMETRIAL CURETTINGS: SCANTY WEAKLY PROLIFERATIVE/INACTIVE ENDOMETRIAL TISSUE. SEPARATE FRAGMENTS OF ENDOCERVICAL TISSUE WITH SQUAMOUS METAPLASIA, AND FRAGMENTS OF SQUAMOUS EPITHELIUM WITH NO DIAGNOSTIC ABNORMALITIES. Electronically Signed Bonilla Gill M.D. Gross Description Received in formalin labeled "endometrial curettings," is a 2.5 x 1.7 x 0.2 cm aggregate of troy-brown soft tissue fragments. The formalin is filtered and the specimen is entirely submitted in one cassette. /02/25/2019 saudi/02/25/2019
== END 2019-02-24 17:10 | disposition home or self-care (01) ==
LOC: JASU-SURG 09:31
PROVIDERS: ATTEND Obstetrics & Gynecology
PROC: 0UDB7ZX Extraction of Endometrium, Via Natural or Artificial Opening, Diagnostic (ICD-10-PCS; principal; 2019-02-24 13:00)
PROC: 0UJD8ZZ Inspection of Uterus and Cervix, Via Natural or Artificial Opening Endoscopic (ICD-10-PCS; 2019-02-24 13:00)
DX: N93.9 Abnormal uterine and vaginal bleeding, unspecified (principal); N84.0 Polyp of corpus uteri
CPT/HCPCS: 36415; 84703; 86850; 86900; 86901; 88305-TC; 94760

== ENCOUNTER 2019-06-15 19:05 | Emergency (ER) | payer OTHER ==
[2019-06-15 19:09] VITALS: TEMP 98.1; BMI 31.8
--- NOTE | 2019-06-15 19:56 | PDOC ---
History of Present Illness - General Chief Complaint: Headache Stated Complaint: HEADACHE - History of Present Illness Initial Comments: The pt is a 53F w/ a history of HTN who presents for evaluation of 3 days of CHANEY. The CHANEY is frontal right-sided and posteriorly b/l, throbbing, waxing/waxing , associated w/ intermittent nausea, intermittently exacerbated by light, and mildly alleviated by ibuprofen. The pt reports not taking her amlodipine over the weekend, but has been taking it for the last 3 days. She denies vision changes, vomiting, chest pain, trouble breathing, abdominal pain, changes in sensation/strength, history of NV/stroke/PE. Pt does not describe CHANEY as 'thunderclap' or worst CHANEY of her life. 06/15/19 20:11 Past History - Past Medical History Allergies/Adverse Reactions: Allergies Allergy/AdvReac Type Severity Reaction Status Date / Time amoxicillin trihydrate Allergy Swelling Verified 06/15/19 19:09 [From Augmentin] azithromycin Allergy Swelling Verified 06/15/19 19:09 potassium clavulanate Allergy Swelling Verified 06/15/19 19:09 [From Augmentin] Home Medications: Ambulatory Orders Amlodipine Besylate 5 mg PO HS 11/07/18 Triamterene/Hydrochlorothiazid [Triamterene-Hctz 37.5-25 mg Cp] 1 each PO DAILY 11/07/18 Ibuprofen [Motrin -] 600 mg PO TID #21 tablet 02/24/19 Anemia: No Asthma: No Cancer: No Cardiac Disorders: No CVA: No COPD: No CHF: No DVT: No Dementia: No Diabetes: No Dialysis: No GI Disorders: No Disorders: No HTN: Yes Hypercholesterolemia: No Liver Disease: No Seizures: No Thyroid Disease: No - Psycho Social/Smoking Cessation Hx Smoking History: Never smoked Have you smoked in the past 12 months: No Hx Alcohol Use: Yes (social) Drug/Substance Use Hx: No Substance Use Type: None Hx Substance Use Treatment: No Review of Systems - Review of Systems Able to Perform ROS?: Yes Comments:: GENERAL/CONSTITUTIONAL: No fever or chills. No weakness HEAD, EYES, EARS, NOSE AND THROAT: No change in vision. No change in hearing. No sore throat CARDIOVASCULAR: No chest pain or shortness of breath RESPIRATORY: Denies cough, hemoptysis GASTROINTESTINAL: Denies nausea currently, No vomiting, diarrhea or constipation GENITOURINARY: No dysuria, frequency, or change in urination MUSCULOSKELETAL: No joint or muscle swelling or pain. No neck or back pain SKIN: No rash NEUROLOGIC: +CHANEY; No vertigo, loss of consciousness, or change in strength/ sensation ENDOCRINE: No increased thirst. No abnormal weight change HEMATOLOGIC/LYMPHATIC: No anemia, easy bleeding, or history of blood clots ALLERGIC/IMMUNOLOGIC: No hives or skin allergy 06/15/19 19:55 Is the patient limited [place] proficient: No *Physical Exam - Vital Signs Last Vital Signs Temp Pulse Resp BP Pulse Ox 98.1 F 70 18 151/84 98 06/15/19 19:06 06/15/19 19:06 06/15/19 19:06 06/15/19 19:06 06/15/19 19:06 - Physical Exam Comments: GENERAL: Awake, alert, and oriented to person/place/time, in no acute distress HEAD: No signs of trauma, normocephalic, atraumatic EYES: PERRLA, EOMI, sclera anicteric, conjunctiva clear ENT: Hearing grossly normal, nares patent, oropharynx clear without exudates. No uvular deviation. Moist mucosa LUNGS: No distress, speaks in full sentences, clear to auscultation bilaterally HEART: Regular rate and rhythm, normal S1 and S2, no murmurs appreciated, peripheral pulses normal and equal bilaterally ABDOMEN: Soft, nontender, normoactive bowel sounds. No guarding, no rebound EXTREMITIES: Normal inspection, Normal range of motion, no edema. No clubbing or cyanosis NEUROLOGICAL: Cranial nerves II through XII grossly intact. Normal speech, normal gait, no focal sensorimotor deficits SKIN: Warm, Dry 06/15/19 19:55 ED Treatment Course - LABORATORY CBC & Chemistry Diagram: 06/15/19 20:30 06/15/19 20:30 Medical Decision Making - Medical Decision Making The pt is a 53F w/ a history of HTN who presents for evaluation of 3 days of CHANEY ED Course CMP, CBC Tylenol, Reglan, Benadryl, and IVF for symptomatic relief CT head Will reassess 06/15/19 20:14 CT head w/o acute pathology No leukocytosis No anemia 06/15/19 21:06 Lytes unremarkable No YUMI LFTs wnl s/p Morphine and solumedrol Pt feels improved at this time Plan for D/C w/ PCP f/u Discharge instructions and return precautions given Pt in agreement and verbalized understanding Dispo: home 06/15/19 23:51 Discharge - Discharge Information Problems reviewed: Yes Clinical Impression/Diagnosis: Hypertension Qualifiers: Hypertension type: unspecified Qualified Code(s): I10 - Essential (primary) hypertension Headache Qualifiers: Headache type: unspecified Headache chronicity pattern: unspecified pattern Intractability: not intractable Qualified Code(s): R51 - Headache Condition: Stable Disposition: HOME - Admission No - Follow up/Referral Referrals: Oli Lewis MD [Primary Care Provider] - - Patient Discharge Instructions Patient Printed Discharge Instructions: Migraine -- Adult Additional Instructions: You were seen in the Emergency Department for evaluation of a headache. You were treated with Tylenol, Reglan, Benadryl, and fluids. Review the handout provided at discharge. Follow up with your primary care provided within a week. You may also take Tylenol 650mg every 6 hours as needed for your headache and alternate it with the Tylenol. Return to the Emergency Department if you develop fevers/chills, worsening headache, vision changes, chest pain, trouble breathing, changes in sensation, nausea/vomiting, or any new/concerning symptoms. - Post Discharge Activity Work/Back to School Note: Back to Work
[2019-06-15] MEDS ORDERED: METOCLOPRAMIDE HCL INJECTION 10 MG/2 ML VIAL IVPUSH ONE (20:10)
[2019-06-15] MEDS ORDERED: ACETAMINOPHEN 1000 MG/100 ML VIAL (NON FORMULARY) IVPB ONE (20:10)
[2019-06-15] MEDS ORDERED: SODIUM CHLORIDE 0.9% 500 ML INFUS.BAG IV ONE (20:10)
[2019-06-15] MEDS ORDERED: METOCLOPRAMIDE HCL INJECTION 10 MG/2 ML VIAL ONE (20:25)
[2019-06-15] MEDS ORDERED: ACETAMINOPHEN INJECTION 100 ML IVPB ONE (20:25)
[2019-06-15 20:38] LABS: BASO % 2.9 % (0-2.0); HEMATOCRIT 44.7 % (32.4-45.2); HEMOGLOBIN 14.3 GM/dL (10.7-15.3); MCH 26.8 pg (25.7-33.7); MCHC 32.1 g/dl (32.0-36.0); MEAN CELL VOLUME 83.6 fl (80-96); MEAN PLT VOLUME 8.5 fl (7.5-11.1); MONO % 4.7 % (3.8-10.2); NEUT % 58.4 % (42.8-82.8); PLATELET COUNT 337 K/MM3 (134-434); RBC 5.34 M/mm3 (3.60-5.2); RDW 14.9 % (11.6-15.6); WHITE BLOOD COUNT 9.9 K/mm3 (4.0-10.0)
[2019-06-15 21:06] LABS: ALBUMIN 3.8 g/dl (3.4-5.0); BILIRUBIN,TOTAL 0.5 mg/dL (0.2-1); BLOOD UREA NITROGEN 13.9 mg/dL (7-18); CALCIUM 8.7 mg/dL (8.5-10.1); CREATININE 0.9 mg/dL (0.55-1.3); POTASSIUM 4.3 mmol/L (3.5-5.1); TOT PROT 7.5 g/dl (6.4-8.2)
[2019-06-15] MEDS ORDERED: morphine CARPU-JECT 4 MG/1 ML DISP.SYRIN IVPUSH ONE (21:28)
[2019-06-15] MEDS ORDERED: methylPREDNISolone NA SUCC 125 MG/2 ML VIAL IVPB ONE (21:28)
[2019-06-15] MEDS ORDERED: methylPREDNISolone NA SUCC 125 MG/2 ML VIAL ONE (21:51)
[2019-06-15] MEDS ORDERED: MORPHINE SULFATE 2 MG/ML VIAL ONE (21:51)
--- NOTE | 2019-06-16 00:09 | PDOC ---
Documentation entered by Stephie Bowman SCRIBE, acting as scribe for Tabatha Verma DO. Tabatha Verma DO: This documentation has been prepared by the Colby mobley Adrianna, SCRIBE, under my direction and personally reviewed by me in its entirety. I confirm that the documentation accurately reflects all work, treatment, procedures, and medical decision making performed by me. Attending Attestation - Resident Resident Name: MarydeCesar - ED Attending Attestation I have performed the following: I have examined & evaluated the patient, The case was reviewed & discussed with the resident, I agree w/resident's findings & plan - HPI HPI: The patient is a 53 year old female, with a significant PMH of HTN, who presents to the ED for evaluation of headache for 3 day. Patient endorses frontal right-sided CHANEY that is intermittent, throbbing, and exacerbated by light. She reports associated intermittent nausea, and notes she did not take her amlodipine over the weekend (but took it the past 3 days). Allergies: Amoxicillin trihydrate, azithromycin, potassium clavulanate Surgical History: None reported Social History: Social EtOH use. Denies tobacco or illicit drug use PCP: Dr. Lewis - Physicial Exam PE: Agree with resident exam. - Medical Decision Making 06/16/19 00:08 53-year-old female with right sided retro-orbital headache CT scan of the brain shows no acute abnormality Patient is neurologically intact On reevaluation after medication with IV steroids, morphine, Benadryl, Tylenol, Reglan patient is now feeling much better She will be discharged home with recommended outpatient follow-up
[2019-06-16 00:33] VITALS: BP 141/86; PULSE 80
== END 2019-06-16 00:34 | disposition home or self-care (01) ==
LOC: JER 19:05
PROC: 3E033NZ Introduction of Analgesics, Hypnotics, Sedatives into Peripheral Vein, Percutaneous Approach (ICD-10-PCS; principal; 2019-06-15)
PROC: 3E033GC Introduction of Other Therapeutic Substance into Peripheral Vein, Percutaneous Approach (ICD-10-PCS; 2019-06-15)
PROC: 3E0337Z Introduction of Electrolytic and Water Balance Substance into Peripheral Vein, Percutaneous Approach (ICD-10-PCS; 2019-06-15)
DX: R51 Headache (principal); I10 Essential (primary) hypertension; Z88.8 Allergy status to other drugs, medicaments and biological substances; Z88.1 Allergy status to other antibiotic agents
CPT/HCPCS: 36415; 70450-TC; 80053; 85025; 99282-25; J0131

== ENCOUNTER 2022-01-27 12:52 | Emergency (ER) | payer BC ==
[2022-01-27 13:02] VITALS: BP 116/76; PULSE 108; TEMP 98; BMI 34.0
[2022-01-27] MEDS ORDERED: BACITRACIN 0.9 GM PACKET TP ONE (14:50)
[2022-01-27] MEDS ORDERED: SULFAMETHOXAZOLE/TRIMETHOPRIM 800MG/160MG D.S. TABLET PO ONE (15:02)
[2022-01-27] MEDS ORDERED: SULFAMETHOXAZOLE/TRIMETHOPRIM 800MG/160MG D.S. TABLET ONE (15:03)
[2022-01-27] MEDS ORDERED: BACITRACIN 0.9 GM PACKET ONE (15:03)
== END 2022-01-27 15:10 | disposition home or self-care (01) ==
LOC: JER 12:52
DX: L76.34 Postprocedural seroma of skin and subcutaneous tissue following other procedure (principal)
CPT/HCPCS: 99283-25